=== PATIENT | female | born 1975 | race Caucasian/White ===

== ENCOUNTER 2016-08-29 17:16 | Observation (INO) | payer SELFPAY ==
[~2016-08-29] VITALS: Ht 162.6 cm; Wt 69.0 kg
[~2016-08-29 17:16] MED LIST: CELE40TA PO; MECL-62 PO; PERC10TA27 PO
[2016-08-29 17:24] VITALS: BP 131/75; PULSE 140; RESP 17; TEMP 102.8; O2SAT 100
[2016-08-29] MEDS ORDERED: ONDANSETRON HCL 4 MG/2 ML VIAL IV PUSH ONE (17:45)
[2016-08-29] MEDS ORDERED: SODIUM CHLOR 0.9% 1000 ML INJ 1,000 ML IV ONE ×2 (17:45→20:30)
[2016-08-29] MEDS ORDERED: PANTOPRAZOLE SODIUM 40 MG VIAL IV PUSH ONE (17:45)
[2016-08-29 17:54] VITALS: O2SAT 97
--- NOTE | 2016-08-29 17:54 | PD ---
HPI Chief Complaint: Cold / Flu Symptoms Time Seen by Provider: 17:35 Travel History International Travel<30 days: No Contact w/Intl Traveler<30days: No Traveled to known affect area: No History of Present Illness HPI 40-year-old female complains of coughing congestion chest pain and epigastric abdominal pain. Patient states that the symptoms started yesterday evening. Patient states the cough is persistent and dry cough. Patient states that she has ringing in the ears, sore throat, generalized aching pain, fever and chills also. Patient states that the chest pain is substernal aching pain with radiation to the throat. Patient denies any palpitation diaphoresis. Patient states that the epigastric pain is aching pain intermittent pain. Patient has intermittent nausea vomiting since this morning. Patient has history of denies history hypertension, diabetes, dyslipidemia. Patient is a smoker. Patient states that she used cocaine 2 days ago and drank beer yesterday. Patient states that she is not on any routine medications. Patient states that her last menstruation period was a week ago. PFSH Past Medical History Arthritis: Yes (RIGHT SHOULDER AND NECK PAIN) Blood Disorders: No Anxiety: Yes Depression: Yes Cancer: No Cardiovascular Problems: No Diminished Hearing: No Endocrine: No Gastrointestinal Disorders: No Genitourinary: No Immune Disorder: No Implanted Vascular Access Dvce: No Kidney Stones: Yes Musculoskeletal: No Neurologic: No Psychiatric: Yes (anxiety) Reproductive: No Respiratory: No Immunizations Current: Yes ?: Not LMP: 1 WEEK. Menopausal: No : 10 Para: 4 Miscarriage: 6 Ovarian Cysts: Yes (LT OOPHERECTOMY) Tubal Ligation: Yes Past Surgical History Gynecologic Surgery: Yes (LEFT OVARY REMOVED) Other Surgery: Yes Social History Alcohol Use: Yes (SOCIALLY) Tobacco Use: Yes (1ppd) Substance Use: Yes (MARIJUANA) Allergies-Medications (Allergen,Severity, Reaction): Coded Allergies: Tramadol (Verified Allergy, Unknown, SEIZURES, 08/29/16) Reported Meds & Prescriptions Reported Meds & Active Scripts Active No Active Prescriptions or Reported Medications Review of Systems General / Constitutional: Positive: Fever, Chills Eyes: No: Visual changes HENT: Positive: Congestion, No: Headaches Cardiovascular: Positive: Chest Pain or Discomfort Respiratory: Positive: Cough, No: Shortness of Breath Gastrointestinal: Positive: Nausea, Vomiting, No: Abdominal Pain Genitourinary: No: Dysuria Musculoskeletal: No: Pain Skin: No Rash Neurologic: No: Weakness Psychiatric: No: Depression Endocrine: No: Polydipsia Hematologic/Lymphatic: No: Easy Bruising Physical Exam Narrative GENERAL: Well-nourished, well-developed patient. SKIN: Warm and dry. HEAD: Normocephalic. EYES: No scleral icterus. No injection or drainage. TM: Clear. Throat: Mild erythematous NECK: Supple, trachea midline. No JVD or lymphadenopathy. No meningismus CARDIOVASCULAR: Tachycardia rate and rhythm without murmurs, gallops, or rubs. RESPIRATORY: Breath sounds equal bilaterally. No accessory muscle use. GASTROINTESTINAL: Abdomen soft, non-tender, nondistended. MUSCULOSKELETAL: No cyanosis, or edema. BACK: Nontender without obvious deformity. No CVA tenderness. Neurologic exam normal. Data Data Last Documented VS Vital Signs Date Time Temp Pulse Resp B/P Pulse Ox O2 Delivery O2 Flow Rate FiO2 08/29/16 20:01 102.6 126 20 120/62 98 Orders Electrocardiogram (08/29/16 17:44) Complete Blood Count With Diff (08/29/16 17:44) Comprehensive Metabolic Panel (08/29/16 17:44) Creatine Kinase (Cpk) (08/29/16:44) Troponin I (08/29/16 17:44) Prothrombin Time / Inr (Pt) (08/29/16 17:44) Act Partial Throm Time (Ptt) (08/29/16 17:44) Urinalysis - C+S If Indicated (08/29/16 17:44) Thyroid Stimulating Hormone (08/29/16 17:44) Chest, Single Ap (08/29/16 17:44) Iv Access Insert/Monitor (08/29/16 17:44) Ecg Monitoring (08/29/16 17:44) Oximetry (08/29/16 17:44) Ed Urine Pregnancytest Poc (08/29/16 17:44) Drug Screen, Random Urine (08/29/16 17:44) Sodium Chlor 0.9% 1000 Ml Inj (Ns 1000 M (08/29/16 17:45) Ondansetron Inj (Zofran Inj) (08/29/16 17:45) Pantoprazole Inj (Protonix Inj) (08/29/16 17:45) Lactic Acid (08/29/16 17:51) Influenzae A/B Antigen (08/29/16 17:53) Acetaminophen (Tylenol) (08/29/16 19:15) Sodium Chlor 0.9% 1000 Ml Inj (Ns 1000 M (08/29/16 20:30) Ibuprofen (Motrin) (08/29/16 20:30) C-Reactive Protein (Crp) (08/29/16 21:30) Westergren Sedimentation Rate (08/29/16 21:30) Sodium Chlor 0.9% 1000 Ml Inj (Ns 1000 M (08/29/16 21:30) Labs Laboratory Tests Test 08/29/16 08/29/16 08/29/16 17:45 18:00 19:05 White Blood Count 12.6 TH/MM3 Red Blood Count 4.75 MIL/MM3 Hemoglobin 12.8 GM/DL Hematocrit 38.5 % Mean Corpuscular Volume 81.2 FL Mean Corpuscular Hemoglobin 26.9 PG Mean Corpuscular Hemoglobin 33.1 % Concent Red Cell Distribution Width 13.2 % Platelet Count 324 TH/MM3 Mean Platelet Volume 8.0 FL Neutrophils (%) (Auto) 89.9 % Lymphocytes (%) (Auto) 2.7 % Monocytes (%) (Auto) 5.7 % Eosinophils (%) (Auto) 0.3 % Basophils (%) (Auto) 1.4 % Neutrophils # (Auto) 11.4 TH/MM3 Lymphocytes # (Auto) 0.3 TH/MM3 Monocytes # (Auto) 0.7 TH/MM3 Eosinophils # (Auto) 0.0 TH/MM3 Basophils # (Auto) 0.2 TH/MM3 CBC Comment DIFF FINAL Differential Comment Prothrombin Time 10.6 SEC Prothromb Time International 1.0 RATIO Ratio Activated Partial 27.3 SEC Thromboplast Time Sodium Level 138 MEQ/L Potassium Level 3.7 MEQ/L Chloride Level 104 MEQ/L Carbon Dioxide Level 23.4 MEQ/L Anion Gap 11 MEQ/L Blood Urea Nitrogen 12 MG/DL Creatinine 1.10 MG/DL Estimat Glomerular Filtration 55 ML/MIN Rate Random Glucose 103 MG/DL Calcium Level 8.6 MG/DL Total Bilirubin 0.2 MG/DL Aspartate Amino Transf 11 U/L (AST/SGOT) Alanine Aminotransferase 21 U/L (ALT/SGPT) Alkaline Phosphatase 55 U/L Total Creatine Kinase 98 U/L Troponin I LESS THAN 0.02 NG/ML Total Protein 8.1 GM/DL Albumin 3.9 GM/DL Thyroid Stimulating Hormone 0.667 uIU/ML 3rd Gen Lactic Acid Level 1.6 mmol/L Urine Color YELLOW Urine Turbidity SLIGHT Urine pH 6.0 Urine Specific [place] 1.017 Urine Protein NEG mg/dL Urine Glucose (UA) NEG mg/dL Urine Ketones NEG mg/dL Urine Occult Blood LARGE Urine Nitrite NEG Urine Bilirubin NEG Urine Leukocyte Esterase NEG Urine RBC 20-24 /hpf Urine WBC 0-2 /hpf Urine Squamous Epithelial 0-5 /hpf Cells Urine Amorphous Sediment SMALL Urine Bacteria OCC /hpf Urine Mucus OCC /lpf Microscopic Urinalysis Comment CULT NOT INDICATED Urine Opiates Screen NEG Urine Barbiturates Screen NEG Urine Amphetamines Screen NEG Urine Benzodiazepines Screen NEG Urine Cocaine Screen NEG Urine Cannabinoids Screen POS MDM Medical Decision Making Medical Screen Exam Complete: Yes Emergency Medical Condition: Yes Interpretation(s) 1831 PM. Chest x-ray shows no acute consolidation. CBC WBC 12.6. 89 neutrophil. CMP with creatinine 1.10. Cardiac enzymes are normal. Influenza AB antigen negative. 1953 PM. Urine drug screen positive for cannabis. UA positive for RBC and occasional bacteria. Differential Diagnosis Differential diagnosis including viral syndrome, pharyngitis, bronchitis, pneumonia, angina, [place], PE, pneumothorax, gastritis, PUD, pancreatitis, cholecystitis, colitis, UTI, pyelonephritis, substance abuse. Narrative Course 40-year-old female with coughing congestion, chest pain, epigastric pain, nausea vomiting, fever chills. Normal saline solution 1 L IV bolus. Protonix 40 mg IV. Zofran 4 mg IV. Normal saline solution 1 L IV bolus. Tylenol 650 mg by mouth. Motrin 600 mg by mouth. 21:32 PM. Reexamination patient's feeling much better. Patient denies any chest pain or shortness of breath. Patient still has tachycardia rate 110 - 120 range. Diagnosis Primary Impression: Bronchitis Additional Impressions: Viral syndrome Tachycardia Admitting Information Admitting Physician Requests: Observation Additional Instructions: Take medications as directed. Tylenol Advil for aching pain. Follow-up with personal physician. Return if persistent problem or worse. Scripts No Active Prescriptions or Reported Meds Meek Sellers MD Aug 29, 2016 17:54
[2016-08-29 17:56] LABS: AUTOMATED NEUTROPHIL # 11.4 TH/MM3 (1.8-7.7); BASOPHIL # 0.2 TH/MM3 (0-0.2); BASOPHIL % 1.4 % (0.0-2.0); EOSINOPHIL % 0.3 % (0.0-4.0); HEMATOCRIT 38.5 % (35.0-46.0); HEMO FLAGS DIFF FINAL; LYMPH % 2.7 % (9.0-44.0); LYMPHOCYTE # 0.3 TH/MM3 (1.0-4.8); MEAN CELL VOLUME 81.2 FL (80.0-100.0); MEAN CORPUSCULAR HEMOGLOBIN 26.9 PG (27.0-34.0); MEAN CORPUSCULAR HGB CONC 33.1 % (32.0-36.0); MONO % 5.7 % (0.0-8.0); NEUT % 89.9 % (16.0-70.0); PLATELET COUNT 324 TH/MM3 (150-450); RED BLOOD COUNT 4.75 MIL/MM3 (4.00-5.30); RED CELL DISTRIBUTION WIDTH 13.2 % (11.6-17.2); WHITE BLOOD COUNT 12.6 TH/MM3 (4.0-11.0)
[2016-08-29 18:04] LABS: CHLORIDE 104 MEQ/L (98-107); POTASSIUM 3.7 MEQ/L (3.5-5.1); SODIUM (NA) 138 MEQ/L (136-145)
[2016-08-29 18:06] VITALS: BP 141/70; PULSE 125; RESP 20; TEMP 101.2; O2SAT 97
[2016-08-29 18:07] LABS: ANION GAP 11 MEQ/L (5-15); BICARBONATE 23.4 MEQ/L (21.0-32.0); BLOOD UREA NITROGEN 12 MG/DL (7-18)
[2016-08-29 18:08] LABS: APTT (PATIENT) 27.3 SEC (24.3-30.1); PROTHROMBIN TIME - PATIENT 10.6 SEC (9.8-11.6)
[2016-08-29 18:10] LABS: ALT (GPT) 21 U/L (10-53); AST (GOT) 11 U/L (15-37); GLOMERULAR FILTRATION RATE 55 ML/MIN (>89)
[2016-08-29 18:12] LABS: TOTAL BILIRUBIN ADULT 0.2 MG/DL (0.2-1.0)
[2016-08-29 18:13] LABS: ALKALINE PHOSPHATASE 55 U/L (45-117)
[2016-08-29 18:14] LABS: CREATINE KINASE 98 U/L (26-192)
--- NOTE | 2016-08-29 18:25 | RADHPO ---
EXAM DATE/TIME: 08/29/2016 18:03 [facility] COMPARISON: No previous studies available for comparison. INDICATIONS : Short of breath, fever, cough, chest pains MEDICAL HISTORY : None. SURGICAL HISTORY : None. ENCOUNTER: Initial ACUITY: 2 days PAIN SCORE: 8/10 LOCATION: Bilateral chest FINDINGS: A single view of the chest demonstrates the lungs to be symmetrically aerated without evidence of mas s, infiltrate or effusion. The cardiomediastinal contours are unremarkable. Osseous structures are intact. CONCLUSION: Normal examination for a patient of this age. Antolin Kidd MD on August 29, 2016 at 18:22 Board Certified Radiologist. This report was verified electronically.
[2016-08-29 19:06] VITALS: BP 135/70; PULSE 129; RESP 20; TEMP 102.9; O2SAT 98
[2016-08-29] MEDS ORDERED: ACETAMINOPHEN 325 MG TAB PO ONE (19:15)
[2016-08-29 19:21] LABS: BLOOD, URINE LARGE (NEG); GLUCOSE,URINE NEG (NEG); KETONE, URINE NEG (NEG); NITRITE,URINE NEG (NEG)
[2016-08-29 19:39] LABS: AMPHETAMINE, URINE NEG (NEG); URINE COLOR YELLOW (YELLW/STRAW)
[2016-08-29 19:40] LABS: BARBITURATES, URINE NEG (NEG); MUCUS URINE OCC /lpf (OCC); SQUAMOUS EPITHELIAL CELL URINE 0-5 /hpf (0-5)
[2016-08-29 19:41] LABS: BACTERIA, URINE OCC /hpf; COMMENT (UR) CULT NOT INDICATED; CULTURE IF INDICATED CULT NOT INDICATED; WBC, URINE 0-2 /hpf (0-5)
[2016-08-29 19:45] LABS: COCAINE, URINE NEG (NEG)
[2016-08-29 20:01] VITALS: BP 120/62; PULSE 126; RESP 20; TEMP 102.6; O2SAT 98
[2016-08-29] MEDS ORDERED: IBUPROFEN 600 MG TAB PO ONE (20:30)
[2016-08-29] MEDS ORDERED: ONDANSETRON HCL 4 MG/2 ML VIAL IVP PRN (21:45)
[2016-08-29] MEDS ORDERED: MAGNESIUM HYDROXIDE SUSP 30 ML CUP PO PRN (21:45)
[2016-08-29] MEDS ORDERED: VANCOMYCIN INJ 1,000 MG in SODIUM CHLOR 0.9% 250 ML INJ 250 ML IV ONE (21:45)
[2016-08-29] MEDS ORDERED: PIPERACIL-TAZO 3.375 GM PREMIX 50 ML IV ONE (21:45)
[2016-08-29] MEDS ORDERED: SODIUM CHLORIDE 0.9% FLUSH 5 ML FLUSH FLUSH PRN (21:45)
[2016-08-29] MEDS ORDERED: NALOXONE HCL 0.4 MG/ML AMP IV PRN (21:45)
[2016-08-29] MEDS ORDERED: IOHEXOL 350 MG/ML 10 ML VIAL (for RAD DIAG) IV ONE (22:30)
--- NOTE | 2016-08-29 22:37 | RADHPO ---
EXAM DATE/TIME: 08/29/2016 21:58 [facility] COMPARISON: No previous studies available for comparison. INDICATIONS : Cough with substernal chest pain. IV CONTRAST: 75 cc Omnipaque 350 (iohexol) IV RADIATION DOSE: 12.01 CTDIvol (mGy) MEDICAL HISTORY : Renal calculi. SURGICAL HISTORY : Tubal ligation. Left oophorectomy. ENCOUNTER: Initial ACUITY: 1 day PAIN SCALE: 6/10 LOCATION: chest TECHNIQUE: Volumetric scanning of the chest was performed using a pulmonary embolism protocol MIP images were re constructed. Using automated exposure control and adjustment of the mA and/or kV according to patien t size, radiation dose was kept as low as reasonably achievable to obtain optimal diagnostic quality images. FINDINGS: PULMONARY ARTERIES: No filling defects are seen in the pulmonary arteries through the segmental level. LUNGS: Trace bibasilar atelectasis. No concerning pulmonary nodule is visualized. PLEURAE: There is no pleural thickening or pleural effusion. MEDIASTINUM: A few lymph nodes are seen of both neyda measuring up to 9 mm in greatest short axis dimension. There are couple sub-5 mm mediastinal lymph nodes. Normal heart size. No perceptible coronary artery calcif ication. MUSCULOSKELETAL: Within normal limits for patient age. MISCELLANEOUS: The visualized upper abdominal organs demonstrate no acute abnormality. There is a small hiatal herni a. CONCLUSION: No pulmonary embolus. Minimal atelectasis at the bases. Upper limits of normal size bilateral mediastinal lymph nodes. Small hiatal hernia. Reji Ferrari MD on August 29, 2016 at 22:33 Board Certified Radiologist. This report was verified electronically.
[2016-08-29] MEDS: SODIUM CHLOR 0.9% 1000 ML INJ 1,000 ML IV SCH (22:38)
[2016-08-30 02:15] VITALS: BP 114/74; PULSE 93; RESP 18; TEMP 99.6; O2SAT 100
[2016-08-30 02:38] VITALS: PULSE 87
[2016-08-30 04:00] VITALS: TEMP 100
[2016-08-30] MEDS: SODIUM CHLOR 0.9% 1000 ML INJ 1,000 ML IV SCH ×3 (05:18→21:28)
[2016-08-30] MEDS: ACETAMINOPHEN 325 MG TAB PO PRN ×2 (05:22→09:47)
[2016-08-30 08:00] VITALS: BP 128/70; PULSE 94; RESP 16; TEMP 100.2; O2SAT 99
[2016-08-30 08:19] LABS: AUTOMATED NEUTROPHIL # 6.4 TH/MM3 (1.8-7.7); BASOPHIL % 0.2 % (0.0-2.0); EOSINOPHIL % 0.2 % (0.0-4.0); HEMATOCRIT 34.1 % (35.0-46.0); LYMPH % 6.4 % (9.0-44.0); LYMPHOCYTE # 0.5 TH/MM3 (1.0-4.8); MEAN CORPUSCULAR HEMOGLOBIN 26.2 PG (27.0-34.0); MEAN CORPUSCULAR HGB CONC 32.4 % (32.0-36.0); MONO % 10.1 % (0.0-8.0); NEUT % 83.1 % (16.0-70.0); PLATELET COUNT 263 TH/MM3 (150-450); RED BLOOD COUNT 4.21 MIL/MM3 (4.00-5.30); RED CELL DISTRIBUTION WIDTH 13.3 % (11.6-17.2); WHITE BLOOD COUNT 7.7 TH/MM3 (4.0-11.0)
[2016-08-30 08:20] LABS: HEMO FLAGS DIFF FINAL
[2016-08-30 08:23] LABS: POTASSIUM 3.5 MEQ/L (3.5-5.1)
[2016-08-30] MEDS: SODIUM CHLORIDE 0.9% FLUSH 5 ML FLUSH FLUSH SCH ×2 (09:00→21:28)
[2016-08-30 12:00] VITALS: BP 122/70; PULSE 90; RESP 16; TEMP 99; O2SAT 99
--- NOTE | 2016-08-30 12:19 | EC ---
Study Study Date:08/30/2016 STUDY CONCLUSIONS SUMMARY - Left ventricle: The cavity size was normal. Wall thickness was normal. Systolic function was normal. The estimated ejection fraction was in the range of 55% to 60%. Wall motion was normal; there were no regional wall motion abnormalities. - Pericardium, extracardiac: There was a left pleural effusion. If LV function is below 40, please consider prescribing an ACEI or ARB or document rationale for non-use. PROCEDURE DATA STUDY STATUS: Elective. Procedure: Transthoracic echocardiography. Image quality was good. Scanning was performed from the parasternal, apical, and subcostal acoustic windows. Study completion: The patient tolerated the procedure well. Transthoracic echocardiography. M-mode, complete 2D, complete spectral Doppler, and color Doppler. Patient status: Inpatient. CARDIAC ANATOMY LEFT VENTRICLE: The cavity size was normal. Wall thickness was normal. Systolic function was normal. The estimated ejection fraction was in the range of 55% to 60%. Wall motion was normal; there were no regional wall motion abnormalities. AORTIC VALVE: Trileaflet; normal thickness leaflets. Doppler: Transvalvular velocity was within the normal range. There was no stenosis. No regurgitation. Peak gradient: 15mm Hg (S). AORTA: Aortic root: The aortic root was normal in size. MITRAL VALVE: Structurally normal valve. Doppler: Transvalvular velocity was within the normal range. There was no evidence for stenosis. No regurgitation. Peak gradient: 5mm Hg (D). LEFT ATRIUM: The atrium was normal in size. RIGHT VENTRICLE: The cavity size was normal. Wall thickness was normal. PULMONIC VALVE: Doppler: Transvalvular velocity was within the normal range. There was no evidence for stenosis. No regurgitation. TRICUSPID VALVE: Structurally normal valve. Doppler: Transvalvular velocity was within the normal range. No regurgitation. PULMONARY ARTERY: The main pulmonary artery was normal-sized. Systolic pressure was within the normal range. RIGHT ATRIUM: The atrium was normal in size. PERICARDIUM: There was no pericardial effusion. SYSTEMIC VEINS: Inferior vena cava: The vessel was normal in size. Pleura: There was a left pleural effusion. BASIC MEASUREMENTS ADULT NORMAL Left ventricle LV internal dimension, ED, chordal level, 43.4 mm 43-52 PLAX LV internal dimension, ES, chordal level, 31.3 mm 23-38 PLAX Fractional shortening, chordal level, PLAX *28 % >29 LV posterior wall thickness, ED 7.25 mm IVS/LVPW ratio, ED 1.18 <1.3 Ventricular septum Septal thickness, ED 8.55 mm Left atrium Anterior-posterior dimension 29 mm Right ventricle RV internal dimension, ED, PLAX 22.9 mm 19-38 DOPPLER MEASUREMENTS ADULT NORMAL Main pulmonary artery Pressure, S 17 mm Hg =30 Aortic valve Peak velocity, S 193 cm/s Peak gradient, S 15 mm Hg Mitral valve Peak E-wave velocity 110 cm/s Peak A-wave velocity 80.8 cm/s Peak gradient, D 5 mm Hg Peak E/A ratio 1.4 Tricuspid valve Regurgitant peak velocity 174 cm/s Peak RV-RA gradient, S 12 mm Hg Maximal regurgitant velocity 174 cm/s Systemic veins Estimated CVP 5 mm Hg Right ventricle RV pressure, S 17 mm Hg <30 LEGEND: Mean values are shown as u=mean value. Asterisk (*) sherman values outside specified normal range. Prepared and signed by Jt Knott [id number]
--- NOTE | 2016-08-30 12:58 | HHI.HP ---
HPI Service [facility] Primary Care Physician No Primary Care Physician Admission Diagnosis fever. Tachycardia. Diagnoses: (1) Febrile illness (2) Viral syndrome (3) Sinusitis (4) Polysubstance abuse Chief Complaint: Fever, chills and emesis Travel History International Travel<30 Days: No Contact w/Intl Traveler <30 Da: No Traveled to Known Affected Are: No History of Present Illness 40-year-old female with a history of depression/anxiety and polysubstance abuse came to the ED yesterday for evaluation of an acute onset of febrile episode, chills and emesis x one-day duration. Patient reported that Tuesday afternoon she started complaining of chills, weakness and headaches while she was out with her son. Immediately when she went home, the symptoms did not resolve and the following monitoring she had episode of emesis without any diarrhea. She also complained of abdominal pain some chest discomfort for and headaches. She reported no improvement with Rodolfo therapy. She admits to cocaine use Review of Systems Other 12 system reviewed and are negative except for the ones mentioned in the history of present illness Past Family Social History Past Medical History Arthritis: Yes (RIGHT SHOULDER AND NECK PAIN) Anxiety: Yes Depression: Yes Left oophorectomy Past Surgical History LEFT OVARY REMOVED Reported Medications No Active Prescriptions or Reported Medications Allergies: Coded Allergies: Tramadol (Verified Allergy, Unknown, SEIZURES, 08/29/16) Family History Sister with diabetes Mother with obstructive sleep apnea Social History Alcohol Use: Yes (SOCIALLY) Tobacco Use: Yes (1ppd) Substance Use: Yes (MARIJUANA) Physical Exam Vital Signs Vital Signs Date Time Temp Pulse Resp B/P Pulse Ox O2 Delivery O2 Flow Rate FiO2 08/30/16 08:00 100.2 94 16 128/70 99 08/30/16 04:00 100.0 08/30/16 02:38 87 08/30/16 02:15 99.6 93 18 114/74 100 08/29/16 20:01 102.6 126 20 120/62 98 08/29/16 19:06 102.9 129 20 135/70 98 08/29/16 18:06 101.2 125 20 141/70 97 08/29/16 17:54 97 08/29/16 17:24 102.8 140 17 131/75 100 Physical Exam GENERAL: This is a well-nourished, well-developed patient, in no apparent distress. SKIN: No rashes, ecchymoses or lesions. Cool and dry. HEAD: Atraumatic. Normocephalic. No temporal or scalp tenderness. EYES: Pupils equal round and reactive. Extraocular motions intact. No scleral icterus. No injection or drainage. ENT: Nose without bleeding, purulent drainage or septal hematoma. Throat without erythema, tonsillar hypertrophy or exudate. Uvula midline. Airway patent. NECK: Trachea midline. No JVD or lymphadenopathy. Supple, nontender, no meningeal signs. CARDIOVASCULAR: Regular rate and rhythm without murmurs, gallops, or rubs. RESPIRATORY: Clear to auscultation. Breath sounds equal bilaterally. No wheezes , rales, or rhonchi. GASTROINTESTINAL: Abdomen soft, non-tender, nondistended. No hepato-splenomegaly , or palpable masses. No guarding. MUSCULOSKELETAL: Extremities without clubbing, cyanosis, or edema. No joint tenderness, effusion, or edema noted. No calf tenderness. Negative Homans sign bilaterally. NEUROLOGICAL: Awake and alert. Cranial nerves II through XII intact. Motor and sensory grossly within normal limits. Five out of 5 muscle strength in all muscle groups. Normal speech. Laboratory Laboratory Tests Test 08/29/16 08/29/16 08/29/16 08/29/16 17:45 18:00 19:05 21:41 White Blood Count 12.6 Red Blood Count 4.75 Hemoglobin 12.8 Hematocrit 38.5 Mean Corpuscular Volume 81.2 Mean Corpuscular Hemoglobin 26.9 Mean Corpuscular Hemoglobin 33.1 Concent Red Cell Distribution Width 13.2 Platelet Count 324 Mean Platelet Volume 8.0 Neutrophils (%) (Auto) 89.9 Lymphocytes (%) (Auto) 2.7 Monocytes (%) (Auto) 5.7 Eosinophils (%) (Auto) 0.3 Basophils (%) (Auto) 1.4 Neutrophils # (Auto) 11.4 Lymphocytes # (Auto) 0.3 Monocytes # (Auto) 0.7 Eosinophils # (Auto) 0.0 Basophils # (Auto) 0.2 CBC Comment DIFF FINAL Differential Comment Prothrombin Time 10.6 Prothromb Time International 1.0 Ratio Activated Partial 27.3 Thromboplast Time Sodium Level 138 Potassium Level 3.7 Chloride Level 104 Carbon Dioxide Level 23.4 Anion Gap 11 Blood Urea Nitrogen 12 Creatinine 1.10 Estimat Glomerular Filtration 55 Rate Random Glucose 103 Calcium Level 8.6 Total Bilirubin 0.2 Aspartate Amino Transf 11 (AST/SGOT) Alanine Aminotransferase 21 (ALT/SGPT) Alkaline Phosphatase 55 Total Creatine Kinase 98 Troponin I LESS THAN 0.02 Total Protein 8.1 Albumin 3.9 Thyroid Stimulating Hormone 0.667 3rd Gen Lactic Acid Level 1.6 Urine Color YELLOW Urine Turbidity SLIGHT Urine pH 6.0 Urine Specific [place] 1.017 Urine Protein NEG Urine Glucose (UA) NEG Urine Ketones NEG Urine Occult Blood LARGE Urine Nitrite NEG Urine Bilirubin NEG Urine Leukocyte Esterase NEG Urine RBC 20-24 Urine WBC 0-2 Urine Squamous Epithelial 0-5 Cells Urine Amorphous Sediment SMALL Urine Bacteria OCC Urine Mucus OCC Microscopic Urinalysis Comment CULT NOT INDICATED Urine Opiates Screen NEG Urine Barbiturates Screen NEG Urine Amphetamines Screen NEG Urine Benzodiazepines Screen NEG Urine Cocaine Screen NEG Urine Cannabinoids Screen POS Erythrocyte Sedimentation Rate 3 C-Reactive Protein 5.10 Test 08/30/16 07:35 White Blood Count 7.7 Red Blood Count 4.21 Hemoglobin 11.1 Hematocrit 34.1 Mean Corpuscular Volume 81.0 Mean Corpuscular Hemoglobin 26.2 Mean Corpuscular Hemoglobin 32.4 Concent Red Cell Distribution Width 13.3 Platelet Count 263 Mean Platelet Volume 8.2 Neutrophils (%) (Auto) 83.1 Lymphocytes (%) (Auto) 6.4 Monocytes (%) (Auto) 10.1 Eosinophils (%) (Auto) 0.2 Basophils (%) (Auto) 0.2 Neutrophils # (Auto) 6.4 Lymphocytes # (Auto) 0.5 Monocytes # (Auto) 0.8 Eosinophils # (Auto) 0.0 Basophils # (Auto) 0.0 CBC Comment DIFF FINAL Differential Comment Sodium Level 142 Potassium Level 3.5 Chloride Level 111 Carbon Dioxide Level 22.0 Anion Gap 9 Blood Urea Nitrogen 8 Creatinine 0.81 Estimat Glomerular Filtration 79 Rate Random Glucose 92 Calcium Level 7.6 Date/Time Procedure Status Source Growth 08/29/16 22:19 Aerobic Blood Culture - Preliminary Resulted Blood Peripheral NO GROWTH IN 1 DAY 08/29/16 22:19 Anaerobic Blood Culture - Preliminary Resulted Blood Peripheral NO GROWTH IN 1 DAY 08/29/16 18:00 Influenza Types A,B Antigen (TAJ) - Final Complete Nasal Washing NEGATIVE FOR FLU A AND B ANTIGEN.... Result Diagram: 08/30/16 0735 08/30/16 0735 Septic Shock Reassessment Heart: Regular rate and rhythm Lungs: Clear Skin: Warm Assessment and Plan Problem List: (1) Febrile illness ICD Code: R50.9 Status: Acute (2) Polysubstance abuse ICD Code: F19.10 Status: Acute (3) Sinusitis ICD Code: J32.9 Status: Acute Assessment and Plan 40-year-old female with 1-Febrile illness: Likely viral, CTA negative for PE. Chest x-ray noted and reviewed without any cardio pulmonary disease. Blood culture negative to date. Flu A and B antigens as well as UA negative. Check 2-D echo to rule out endocarditis secondary to patient history of polysubstance abuse despite the fact that she is denying IV drug use. Consider HIV testing 2-History of sinusitis: Secondary to febrile illness, patient was treated with IV Zosyn and vancomycin 1 in ED however we will switch to by mouth Augmentin 500-875 mg BID 3-Polysubstance abuse: UDS positive for cocaine; Counseled to quit 4-Nicotine dependence: Counseled to quit, start nicotine patch 5-DVT prophylaxis: B-SCD Code Status Full code Discussed Condition With Patient Dannie Galicia MD Aug 30, 2016 12:58
[2016-08-30] MEDS: IBUPROFEN 600 MG TAB PO SCH ×2 (17:06→21:28)
--- NOTE | 2016-08-30 18:09 | EKG ---
Date Performed: 08/29/2016 Time Performed: 17:33:46 PTAGE: 40 years EKG: Sinus tachycardia Possible left atrial abnormality Lateral ST-T changes are nonspecific Whe n compared to previous tracing, the lateral ST segment Changes are new, clinical correlation is advis ed. Borderline ECG PREVIOUS TRACING : 09/20/2014 18.54 DOCTOR: Makenzie Julien Interpretating Date/Time 08/30/2016 18:07:46
[2016-08-30 20:00] VITALS: BP 104/56; PULSE 84; RESP 18; TEMP 99.1; O2SAT 97
[2016-08-30] MEDS: AMOXICILLIN/CLAVULANATE K 875 MG TAB PO SCH (21:27)
[2016-08-31] VITALS: BP 107/54; PULSE 80; RESP 16; TEMP 98.6; O2SAT 98
[2016-08-31] MEDS: IBUPROFEN 600 MG TAB PO SCH (06:44)
[2016-08-31] MEDS: SODIUM CHLOR 0.9% 1000 ML INJ 1,000 ML IV SCH (06:45)
[2016-08-31 08:00] VITALS: BP 119/65; PULSE 82; RESP 18; TEMP 98.8; O2SAT 97
[2016-08-31] MEDS ORDERED: AMOX875T2 PO (08:41)
[2016-08-31] MEDS ORDERED: IBUP-232 PO (08:41)
[2016-08-31] MEDS ORDERED: LACTCHW3 CHEW (08:41)
--- NOTE | 2016-08-31 08:44 | HHI.PR ---
Subjective Remarks Follow-up febrile illness/sinusitis 08/31/16-patient seen and examined, afebrile 24 hours and denies any headaches or shortness of breath. Ready for discharge. Objective Vitals Vital Signs Date Time Temp Pulse Resp B/P Pulse Ox O2 Delivery O2 Flow Rate FiO2 08/31/16 08:00 98.8 82 18 119/65 97 08/31/16 00:00 98.6 80 16 107/54 98 08/30/16 20:00 99.1 84 18 104/56 97 08/30/16 12:00 99.0 90 16 122/70 99 I/O 08/30/16 08/30/16 08/30/16 08/31/16 08/31/16 08/31/16 07:00 15:00 23:00 07:00 15:00 23:00 Intake Total 600 ml 3233 ml 1658 ml Balance 600 ml 3233 ml 1658 ml Intake Oral 500 ml 400 ml IV Total 600 ml 2733 ml 1258 ml # Voids 3 1 2 2 # Bowel Movements 0 0 Result Diagram: 08/30/16 0735 08/30/16 [address] Angiography 08/29/162138 Signed Impressions: Service Date/Time: Monday, August 29, 2016 21:58 - CONCLUSION: No pulmonary embolus. Minimal atelectasis at the bases. Upper limits of normal size bilateral mediastinal lymph nodes. Small hiatal hernia. Reji Ferrari MD Chest X-Ray 08/29/16 1744 Signed Impressions: Service Date/Time: Monday, August 29, 2016 18:03 - CONCLUSION: Normal examination for a patient of this age. Antolin Kidd MD Objective Remarks GENERAL: NAD SKIN: Warm and dry. HEAD: Normocephalic. EYES: No scleral icterus. No injection or drainage. NECK: Supple, trachea midline. No JVD or lymphadenopathy. CARDIOVASCULAR: Regular rate and rhythm without murmurs, gallops, or rubs. RESPIRATORY: Breath sounds equal bilaterally. No accessory muscle use. GASTROINTESTINAL: Abdomen soft, non-tender, nondistended. MUSCULOSKELETAL: No cyanosis, or edema. BACK: Nontender without obvious deformity. No CVA tenderness. A/P Problem List: (1) Febrile illness ICD Code: R50.9 Status: Acute (2) Polysubstance abuse ICD Code: F19.10 Status: Acute (3) Sinusitis ICD Code: J32.9 Status: Acute Assessment and Plan 40-year-old female with 1-Febrile illness: Resolved. Likely viral, CTA negative for PE. Chest x-ray noted and reviewed without any cardio pulmonary disease. Blood culture negative to date. Flu A and B antigens as well as UA negative. 2-D echo noted and reviewed without any evidence of endocarditis 2-History of sinusitis: Secondary to febrile illness, patient was treated with IV Zosyn and vancomycin 1 in ED ; currently on Augmentin 500-875 mg BID 3-Polysubstance abuse: UDS positive for cocaine; Counseled to quit 4-Nicotine dependence: Counseled to quit, nicotine patch 5-DVT prophylaxis: B-SCD Discharge Planning Discharge patient to home Condition on discharge: Improved Regular Diet as tolerated Ad Precious activity Rx written: Augmentin twice a day, ibuprofen 600 mg 3 times a day, Lactinex Follow-up with primary care physician in one week Dannie Galicia MD Aug 31, 2016 08:44
[2016-08-31] MEDS: AMOXICILLIN/CLAVULANATE K 875 MG TAB PO SCH (08:58)
[2016-08-31] MEDS: SODIUM CHLORIDE 0.9% FLUSH 5 ML FLUSH FLUSH SCH (08:59)
== END 2016-08-31 11:45 | disposition home or self-care (01) ==
LOC: PHED 17:16 → PHEDA 21:47 → PH3A 08-30 02:19
PROVIDERS: ADMIT Hospitalist; ATTEND Hospitalist
DX: J40 Bronchitis, not specified as acute or chronic (principal); B34.9 Viral infection, unspecified; R00.0 Tachycardia, unspecified; R09.89 Other specified symptoms and signs involving the circulatory and respiratory systems; R10.13 Epigastric pain; R07.2 Precordial pain; J02.9 Acute pharyngitis, unspecified; R11.2 Nausea with vomiting, unspecified; F17.210 Nicotine dependence, cigarettes, uncomplicated; F41.9 Anxiety disorder, unspecified; F12.10 Cannabis abuse, uncomplicated; F14.10 Cocaine abuse, uncomplicated; R51 Headache; R53.1 Weakness
CPT/HCPCS: 71010; 71275; 80048; 80053; 80307; 81001; 82550; 83605; 84443; 84484; 84703; 85025; 85610; 85652; 85730; 86140; 87040; 87804; 93005; 93306; 96361; 96374; 96375; 99285; C9113; G0378; J2405; J2543; J3370; J7030; J7050; Q9967

== ENCOUNTER 2016-09-14 07:05 | Emergency (ER) | payer SELFPAY ==
[~2016-09-14] VITALS: Ht 160 cm; Wt 70.0 kg
[~2016-09-14 07:05] MED LIST changes: +AMOX875T2 PO; -CELE40TA PO; +IBUP-232 PO; +LACTCHW3 CHEW; -MECL-62 PO; -PERC10TA27 PO
[2016-09-14 07:07] VITALS: BP 114/73; PULSE 80; RESP 16; TEMP 98.4; O2SAT 99
[2016-09-14] MEDS ORDERED: ERYTOIN10 EACH EYE (07:25)
--- NOTE | 2016-09-14 07:25 | PD ---
HPI Chief Complaint: Eye Problems/Injury Time Seen by Provider: 07:14 Travel History International Travel<30 days: No Contact w/Intl Traveler<30days: No Traveled to known affect area: No History of Present Illness HPI This is a 41 year old female who presents to the emergency department with redness and itching of her eyes. She says that for several days she's had some redness and irritation of the left eye which has since spread to the right eye, constant, moderate severity associated with some clear and pinkish discharge. She's been taking ketorolac eyedrops but that's not been helping. She recently has been ill with a cough and congestion. She was admitted to the hospital over a week ago for sinusitis and concern for possible endocarditis. She says her cough has never really cleared up since then. PFSH Past Medical History Hx Anticoagulant Therapy: No Arthritis: Yes (RIGHT SHOULDER AND NECK PAIN) Blood Disorders: No Anxiety: Yes Depression: Yes Cancer: No Cardiovascular Problems: Yes (HTN) Diabetes: No Diminished Hearing: No Endocrine: No Gastrointestinal Disorders: No Genitourinary: Yes Immune Disorder: No Implanted Vascular Access Dvce: No Kidney Stones: Yes Musculoskeletal: Yes Neurologic: No Psychiatric: Yes Reproductive: No Respiratory: No Immunizations Current: Yes Influenza Vaccination: No ?: Not LMP: 08/30/16 Menopausal: No : 10 Para: 4 Miscarriage: 6 Ovarian Cysts: Yes (LT OOPHERECTOMY) Tubal Ligation: Yes Past Surgical History Abdominal Surgery: No Cardiac Surgery: No Ear Surgery: No Endocrine Surgery: No Eye Surgery: No Genitourinary Surgery: No Gynecologic Surgery: Yes (LEFT OVARY REMOVED) Neurologic Surgery: No Oral Surgery: No Thoracic Surgery: No Other Surgery: Yes Social History Alcohol Use: Yes (SOCIALLY) Tobacco Use: Yes (1ppd) Substance Use: Yes (MARIJUANA) Allergies-Medications (Allergen,Severity, Reaction): Coded Allergies: Tramadol (Verified Allergy, Unknown, SEIZURES, 09/14/16) Reported Meds & Prescriptions Reported Meds & Active Scripts Active No Active Prescriptions or Reported Medications Review of Systems Except as stated in HPI: all other systems reviewed are Neg Physical Exam Narrative GENERAL: Well-appearing, no acute distress, nontoxic SKIN: Warm and dry. HEAD: Atraumatic. Normocephalic. Eyes: Bilateral conjunctival injection with no discharge, pupils are equal and reactive. ENT: No nasal bleeding or discharge. Moist mucous membranes CV: Regular rate and rhythm, no obvious murmurs Lungs: Clear to auscultation bilaterally with no wheezing or Rales MUSCULOSKELETAL: No obvious deformities. NEUROLOGICAL: Awake and alert. No obvious cranial nerve deficits. Moving all extremities. PSYCHIATRIC: Appropriate mood and affect; insight and judgment normal. Data Data Last Documented VS Vital Signs Date Time Temp Pulse Resp B/P Pulse Ox O2 Delivery O2 Flow Rate FiO2 09/14/16 07:07 98.4 80 16 114/73 99 MDM Medical Decision Making Medical Screen Exam Complete: Yes Emergency Medical Condition: Yes Differential Diagnosis Viral conjunctive, bacterial conjunctivitis, HSV keratitis, preseptal cellulitis Narrative Course This is a 41-year-old female who presents to the emergency department having upper respiratory symptoms preceding redness and irritation of both eyes. Patient has evidence of conjunctivitis on exam. She will be discharged on a topical antibiotic and was given a referral to ophthalmology as needed. Diagnosis Primary Impression: Conjunctivitis Qualified Code: B30.9 - Acute viral conjunctivitis of both eyes Referrals: Tayler Wakefield MD Additional Instructions: If you develop severe chest pain, shortness of breath, sweating, lightheadedness , dizziness or difficulty breathing return to the emergency department immediately. Follow-up with an adhesive bandage machine operator if your symptoms are not resolved. Med/Other Pt SpecificInfo: Prescription(s) given Scripts Erythromycin Opth Oint 5 Mg/Gm Oint1 Applic EACH EYE QID 5 Days Ref 0 Prov:Christiane Blandon MD 09/14/16 Disposition: DISCHARGE HOME Condition: Stable Christiane Blandon MD Sep 14, 2016 07:25
== END 2016-09-14 07:35 | disposition home or self-care (01) ==
LOC: PHEFT 07:05
DX: H10.33 Unspecified acute conjunctivitis, bilateral (principal); I10 Essential (primary) hypertension; F17.210 Nicotine dependence, cigarettes, uncomplicated; F12.10 Cannabis abuse, uncomplicated
CPT/HCPCS: 99282